=== PATIENT | male | born 1995 | race African-American/Black ===

== ENCOUNTER 2021-12-09 04:17 | Day surgery (SDC) | payer OTHER ==
[2021-12-05 11:50] VITALS: BMI 22.3
[2021-12-09 12:19] VITALS: RESP 18
[2021-12-09] MEDS ORDERED: MIDAZOLAM HCL 2 MG/2 ML SINGLE DOSE VIAL ONE ×2 (16:10→16:20)
[2021-12-09 17:50] VITALS: BP 110/64; PULSE 70; TEMP 98.4
== END 2021-12-09 17:50 | disposition home or self-care (01) ==
LOC: JASU-SURG 04:17
PROVIDERS: ATTEND Urology
PROC: 0TF4XZZ Fragmentation in Left Kidney Pelvis, External Approach (ICD-10-PCS; principal; 2021-12-09 14:00)
DX: N20.0 Calculus of kidney (principal)